=== PATIENT | male | born 1950 | race Caucasian/White ===

== ENCOUNTER 2017-09-18 03:48 | Inpatient (IN) | payer MEDICARE, OTHER ==
[~2017-09-18] VITALS: Ht 177.8 cm; Wt 138.8 kg
[~2017-09-18 03:48] MED LIST: ASPI-495 PO; HYDR2TAB7 PO; LEVO175T2 PO; NEBI5TAB8 PO; TAMS-12 PO
--- NOTE | 2017-09-18 03:50 | NUR ---
BIBRA FROM HOME C/O BURNING LIKE NONRADIATING CHEST PAIN X ALL DAY. PT AOX3 RR EVEN AND UNLABORED NO SOB, PT NOT DIAPHORETIC. PT GOWNED AND PLACED ON MONITOR. PT STATES HX STENT PLACEMENT. PER EMS GAVE ASA 162 AND 2 SPRAYS OF NITRO WITH RELIEF. PT WAITING FOR MD LEONG
--- NOTE | 2017-09-18 04:13 | NUR ---
DR. DAN AT BEDSIDE FOR EVAL. PT SON AT BEDSIDE
[2017-09-18] MEDS ORDERED: NITROGLYCERIN PACKET 1 GM PACKET ONE (04:22)
[2017-09-18] MEDS ORDERED: HYDROMORPHONE HCL 2 MG TABLET ONE (04:22)
[2017-09-18 04:29] LABS: BASOPHILS % (AUTO) 0.3 % (0.0-2.0); EOSINOPHILS # (AUTO) 0.1 /CMM (0.0-0.7); EOSINOPHILS % (AUTO) 1.2 % (0.0-6.0); HEMATOCRIT 42 % (39-51); HEMOGLOBIN 14.1 g/dL (13.5-17.5); LYMPHOCYTES # (AUTO) 3.4 /CMM (0.8-4.8); LYMPHOCYTES % (AUTO) 30.6 % (20.0-44.0); MEAN CORPUSCULAR HEMOGLOBIN 28 PG (26.0-33.0); MEAN CORPUSCULAR HGB CONC 34 g/dl (31.0-36.0); MEAN CORPUSCULAR VOLUME 84 fL (80-96); MONOCYTES # (AUTO) 0.6 /CMM (0.1-1.30); MONOCYTES % (AUTO) 5.1 % (2.0-12.0); NEUTROPHILS # (AUTO) 6.9 /CMM (1.8-8.9); NEUTROPHILS % (AUTO) 62.8 % (43.0-81.0); PLATELET COUNT (AUTO) 224 /CMM (150-450); RDW COEFFICIENT OF VARIATION 15.5 (11.5-15.0); RED BLOOD CELL COUNT(AUTO) 5.03 MIL/uL (4.5-6.0); WHITE BLOOD COUNT (AUTO) 10.9 K/uL (4.3-11.0)
[2017-09-18] MEDS ORDERED: HYDROMORPHONE HCL 2 MG TABLET PO PRN (04:30)
[2017-09-18] MEDS ORDERED: NITROGLYCERIN PACKET 1 GM PACKET TD ONE (04:30)
[2017-09-18] MEDS ORDERED: ASPIRIN 81 MG TAB.CHEW PO ONE (04:30)
[2017-09-18 04:39] LABS: CALCIUM, SERUM 9.2 mg/dL (8.5-10.1); CREATININE 1.5 mg/dL (0.6-1.3); POTASSIUM 3.7 mmol/L (3.5-5.1)
[2017-09-18 04:46] LABS: TROPONIN I 0.058 ng/mL (0.00-0.056)
--- NOTE | 2017-09-18 04:51 | NUR ---
RADIOLOGY AT BEDSIDE FOR CXR
[2017-09-18 04:52] LABS: ALBUMIN 3.5 g/dL (3.4-5.0); BILIRUBIN,DIRECT 0.1 mg/dL (0.0-0.2); BILIRUBIN,TOTAL 0.4 mg/dL (0.2-1.0); TOTAL PROTEIN, SERUM 8.1 g/dL (6.4-8.2)
[2017-09-18] MEDS ORDERED: ENOXAPARIN SODIUM 80 MG/0.8 ML DISP.SYRIN SQ ONE (05:17)
[2017-09-18] MEDS ORDERED: ENOXAPARIN SODIUM 60 MG/0.6 ML DISP.SYRIN SQ ONE (05:17)
[2017-09-18] MEDS ORDERED: ENOXAPARIN SODIUM 30 MG/0.3 ML DISP.SYRIN SQ ONE (05:30)
--- NOTE | 2017-09-18 05:37 | NUR ---
DR. DAN SPOKE TO DR. VELAZQUEZ REGARDING ADMISSION
--- NOTE | 2017-09-18 05:56 | NUR ---
PT ASSIGNED 116-2
[2017-09-18] MEDS ORDERED: MAG HYDROX/AL HYDROX/SIMETH 30 ML UDC PO PRN (06:00)
[2017-09-18] MEDS ORDERED: HYDROCODONE/APAP 5/325MG 1 EACH TABLET PO PRN (06:00)
[2017-09-18] MEDS ORDERED: MAGNESIUM HYDROXIDE 30 ML UDC PO PRN (06:00)
[2017-09-18] MEDS ORDERED: hydrALAZINE HCL 25 MG TABLET PO PRN ×2 (06:00→11:30)
[2017-09-18] MEDS ORDERED: Z GUARD REMEDY 2 OZ OINT TP PRN (06:00)
[2017-09-18] MEDS ORDERED: HYDROMORPHONE INJ 2 MG/ML DISP.SYRIN IV PRN (06:00)
--- NOTE | 2017-09-18 06:38 | NUR ---
REPORT GIVEN TO SUMI ADAMS FOR EDD / TELE BED 116
--- NOTE | 2017-09-18 06:40 | NUR ---
PER NALLELY CR, WILL CALL WHEN BED IS AVAILABLE.
--- NOTE | 2017-09-18 07:06 | NUR ---
REPORT GIVEN TO SUMI SHUKLA FOR EDD.
--- NOTE | 2017-09-18 07:13 | NUR ---
PT TRANSFERRED TO TELE BED 109 PER ACLS PROTOCOL.
[2017-09-18 07:25] VITALS: BP 143/75
--- NOTE | 2017-09-18 07:25 | NUR ---
NETWORK FIREWALL ENGINEER NOTE: PATIENT RECEIVED IN RM 116-2 FROM ER FOR FURTHER EVALUATION. PATIENT AWAKE, ALERT AND VERBALLY RESPONSIVE. RESPIRATION EVENA ND UNLABORED. ON O2 @ 2L/MIN VIA NC. NO SHORTNESS OF BREATH NOTED. DENIED ANY CHEST PAIN AT THIS TIME. ON TELE MONITOR, SINUS RHYTHM HR= 68. INTRODUCED SELF AND EXPLAINED THE PROCEDURES TO BE DONE. 2 SIDE RAILS UP. COMPLETE BODY ASSESSMENT DONE. SKIN INTACT. (L) AC 18G NOTED INTACT AND PATENT. AFEBRILE. SKIN WARM TO TOUCH. ABLE TO MOVE ALL 4 EXTREMITIES. BED ALARM AND LOCKED ON. ORIENTED WITH HOSPITAL ENVIRONMENT. CALL LIGHT WITHIN REACH. NEEDS ANTICIPATED. CONTINUE TO MONITOR.
[2017-09-18 08:00] VITALS: BP_SYST 135; BP_SYST 143; BP_DIAS 66; BP_DIAS 75
[2017-09-18] MEDS: LEVOTHYROXINE SODIUM 175 MCG TABLET PO SCH (08:02)
[2017-09-18] MEDS: ASPIRIN EC 81 MG TABLET.DR PO SCH (08:02)
[2017-09-18] MEDS: ONDANSETRON HCL/PF 4 MG/2 ML VIAL IVP PRN (08:02)
--- NOTE | 2017-09-18 08:48 | NUR ---
BEAN SPROUT LABORER NOTE: PATIENT WENT FOR V/Q SCAN, BUT TEST WAS NOT DONE BECAUSE PER PT HE WAS FEELING NERVOUS. AND PER PT REQUEST, HE WANTED TO HAVE THE TEST DONE TOMORROW MORNING.
[2017-09-18] MEDS ORDERED: LORAZEPAM INJ 2 MG/ML VIAL IV ONE (09:00)
[2017-09-18] MEDS: HYDROMORPHONE HCL 2 MG TABLET PO PRN ×3 (09:15→23:25)
[2017-09-18] MEDS: IV NS 0.9% 1,000 ML IV PRN ×2 (11:40→21:34)
[2017-09-18 12:00] VITALS: BP 113/64
[2017-09-18] MEDS ORDERED: HEPARIN SODIUM, PORCINE 5000 UNITS/1 ML VIAL IV ONE (12:00)
--- NOTE | 2017-09-18 13:15 | NUR ---
FLIGHT MANAGER NOTE: WHITE KID BUFFER FROM THE LAB WAS ABOUT TO DRAW BLOOD (PT/PTT) FOR THE PATIENT. UNABLE TO COLLECT BLOOD. PT REFUSED TO BE STICK TWICE. PER LAB, THEY WILL SEND ANOTHER WHITE KID BUFFER TO DRAW THE BLOOD.
--- NOTE | 2017-09-18 14:00 | NUR ---
RN NOTES CALL MAKE TO LAB REGARDING PT AND PTT RESULTS , LAB WORK IS IN PROCESS
[2017-09-18 14:09] LABS: INR 0.96 (0.87-1.13)
[2017-09-18] MEDS: HEPARIN INFUSION/D5W 500 ML IV PRN (14:29)
--- NOTE | 2017-09-18 14:58 | NUR ---
RN NOTES DR. MEDINA NOTIFIED REGRADING TROPONIN 0.170 , NO NEW ORDER GIVEN .CONTINUE TO MONITOR .
[2017-09-18 16:00] VITALS: BP 179/79
--- NOTE | 2017-09-18 16:00 | NUR ---
INSTRUMENTATION TECHNICIAN NOTE: PATIENT'S BP NOTED 177/70 HR 85. HYDRALAZINE 50 MG PO Q8HR PRN WAS ADMINISTERED ORDERED. WILL MONITOR PATIENT'S BP. PATIENT REMAINED IN BED, ASLEEP AND NOT ON ANY FORM OF DISTRESS.
[2017-09-18] MEDS ORDERED: hydrALAZINE HCL 50 MG TABLET PO ONE (17:00)
[2017-09-18] MEDS: NIFEdipine XL 60 MG TAB PO SCH (17:15)
--- NOTE | 2017-09-18 17:15 | NUR ---
PACK PRESS OPERATOR NOTE: PATIENT IN BED, ASLEEP AND DENIED PAIN. RECHECKED TG=325/69, HR=78. DR. CARTER WAS MADE AWARE OF IT. MD GAVE NEW ORDERS, NOTED AND CARRIED OUT. PATIENT WAS INFORMED.
--- NOTE | 2017-09-18 18:00 | NUR ---
MOLDER APPRENTICE NOTE: ATTEMPTED TO INSERT ANOTHER IV PERIPHERAL LINE FOR THE PATIENT, BUT UNSUCCESSFUL AT THIS TIME. CHARGE NURSE WAS MADE AWARE.
[2017-09-18] MEDS: ACETAMINOPHEN 325 MG TABLET PO PRN (18:10)
--- NOTE | 2017-09-18 19:25 | NUR ---
SPECIMEN PREPARATION ASSISTANT NOTE: PATIENT IN BED WITH AT THE BEDSIDE. NO SOB. DENIED PAIN. BED ALARM AND LOCKED AT ALL TIMES FOR SAFETY. REPORT GIVEN TO PM RN FOR CONTINUITY OF CARE. CALL LIGHT WITHIN REACH. IV FLUID AND HEPARIN DRIP STILL RUNNING ORDERED. NO S/S OF BLEEDING NOTED.
--- NOTE | 2017-09-18 19:41 | NUR ---
RN OPENING NOTE RECEIVED PATIENT IN THE BED, ASLEEP, EASILY AWAKENED, IS BY BEDSIDE, LAMP STACK DEVELOPER IS DOING ECHO CARD, NO S/S OF DISTRESS NOTED, PATIENT WILL BE NPO AFTER MIDNIGHT DUE TO PROCEDURE TOMORROW, L AC 18 GAUGE, ONGOING HEPARIN DRIP, ADMIT DX: CHEST PAIN, BED IN THE LOW POSITION , CALL LIGHT WITHIN REACH, ALL BELONGINGS WITHIN REACH, SIDE RAILS UP X 2, WILL CONTINUE TO MONITOR PATIENT
[2017-09-18 20:00] VITALS: BP 144/69
[2017-09-18] MEDS: hydrALAZINE HCL 50 MG TABLET PO SCH (20:59)
[2017-09-18] MEDS: CARVEDILOL 6.25 MG TABLET PO SCH (20:59)
[2017-09-18] MEDS: TAMSULOSIN 0.4 MG CAP.SR.24H PO SCH (21:29)
[2017-09-18] MEDS: ZOLPIDEM TARTRATE 5 MG TABLET PO PRN (22:08)
--- NOTE | 2017-09-18 22:19 | NUR ---
RN NOTE aPTT 115, WILL HOLD HEPARIN FOR 1 HOUR, AND THEN DECREASE HEPARIN DRIP BY 300 PER HEPARIN PROTOCOL, CHARGE NURSE IS AWARE, AWARE
[2017-09-19] VITALS: BP 130/85
[2017-09-19] MEDS ORDERED: PNEUMOCOCCAL 23-VAL P-SAC VAC 0.5 ML VIAL SQ ONE (01:00)
[2017-09-19] MEDS: ONDANSETRON HCL/PF 4 MG/2 ML VIAL IVP PRN ×4 (01:14→16:36)
[2017-09-19 04:00] VITALS: BP_SYST 130; BP_SYST 95; BP_DIAS 56; BP_DIAS 71
[2017-09-19 04:32] LABS: BASOPHILS % (AUTO) 0.3 % (0.0-2.0); EOSINOPHILS % (AUTO) 0.2 % (0.0-6.0); HEMATOCRIT 37 % (39-51); HEMOGLOBIN 12.5 g/dL (13.5-17.5); LYMPHOCYTES # (AUTO) 1.7 /CMM (0.8-4.8); LYMPHOCYTES % (AUTO) 15.5 % (20.0-44.0); MEAN CORPUSCULAR HEMOGLOBIN 29 PG (26.0-33.0); MEAN CORPUSCULAR HGB CONC 34 g/dl (31.0-36.0); MEAN CORPUSCULAR VOLUME 84 fL (80-96); MONOCYTES # (AUTO) 0.4 /CMM (0.1-1.30); MONOCYTES % (AUTO) 3.7 % (2.0-12.0); NEUTROPHILS # (AUTO) 8.7 /CMM (1.8-8.9); NEUTROPHILS % (AUTO) 80.3 % (43.0-81.0); PLATELET COUNT (AUTO) 182 /CMM (150-450); RDW COEFFICIENT OF VARIATION 15.4 (11.5-15.0); RED BLOOD CELL COUNT(AUTO) 4.37 MIL/uL (4.5-6.0); WHITE BLOOD COUNT (AUTO) 10.9 K/uL (4.3-11.0)
[2017-09-19 04:49] LABS: TROPONIN I 0.225 ng/mL (0.00-0.056)
[2017-09-19 04:51] LABS: ALBUMIN 2.8 g/dL (3.4-5.0); BILIRUBIN,TOTAL 0.5 mg/dL (0.2-1.0); CALCIUM, SERUM 8.1 mg/dL (8.5-10.1); CREATININE 1.1 mg/dL (0.6-1.3); MAGNESIUM 1.5 mg/dL (1.8-2.4); PHOSPHORUS 2.6 mg/dL (2.5-4.9); POTASSIUM 3.6 mmol/L (3.5-5.1); TOTAL PROTEIN, SERUM 6.5 g/dL (6.4-8.2)
[2017-09-19 04:55] LABS: THYROID STIMULATING HORMONE 0.925 uIU/mL (0.358-3.74)
[2017-09-19] MEDS ORDERED: HEPARIN INFUSION/D5W 500 ML IV ONE (05:24)
[2017-09-19] MEDS: HEPARIN INFUSION/D5W 500 ML IV PRN ×2 (05:34→20:27)
--- NOTE | 2017-09-19 07:00 | NUR ---
RN NOTE RECEIVED PATIENT ON BED, A/Ox4, RESPIRATION EVEN AND UNLABORED ON O2 AT 2L O2 N/C, NO SOB NOTED, ON TELE SR , HR IN 80,S , LEFT FOREARM IV G 22 CDI, WITH HEPARIN GTT AT 1785 UNITS /HR , NO DISTRESS NOTED, CALL LIGHT WITHIN REACH REACH, BED LOCKED AND IN LOWEST POSITION ,SIDE RAILS UP X 3, WILL CONTINUE TO MONITOR PT CLSOELY
--- NOTE | 2017-09-19 07:19 | NUR ---
RN CLOSING NOTE PATIENT IN THE BED, RESTING, EASILY AWAKENED, NO PAIN OR DISCOMFORT NOTED, NO S/S OF BLEEDING NOTED, ONGOING HEPARIN DRIP, PATIENT REQUESTED TO SEE DR CARTER TO DISCUSS PLAN OF CARE, ENDORSED TO AM NURSE, NO RESPIRATORY DISTRESS NOTED, BED IN THE LOW POSITION, CALL LIGHT WITHIN REACH, ALL BELONGINGS WITHIN REACH, BED ALARM ACTIVATED
[2017-09-19] MEDS: HYDROMORPHONE HCL 2 MG TABLET PO PRN ×2 (07:41→14:16)
[2017-09-19 08:00] VITALS: BP 123/45
--- NOTE | 2017-09-19 08:45 | NUR ---
RN NOTES HEART CATH CANCELED THIS AM , DR MEDINA NOTIFIED .
[2017-09-19] MEDS: ASPIRIN EC 81 MG TABLET.DR PO SCH (09:15)
[2017-09-19] MEDS: NIFEdipine XL 60 MG TAB PO SCH (09:16)
[2017-09-19] MEDS: LEVOTHYROXINE SODIUM 175 MCG TABLET PO SCH (09:16)
[2017-09-19] MEDS: CARVEDILOL 6.25 MG TABLET PO SCH (09:16)
[2017-09-19] MEDS: hydrALAZINE HCL 50 MG TABLET PO SCH ×3 (09:17→16:24)
[2017-09-19] MEDS: IV NS 0.9% 1,000 ML IV PRN ×2 (09:29→20:17)
--- NOTE | 2017-09-19 09:40 | NUR ---
RN NOTES PT REFUSED TO HAVE V/Q SCAN DONE THIS AM , DR CARTER NOTIFIED.
[2017-09-19] MEDS: Magnesium 1GM/D5W 100ML PREMIX 100 ML IV SCH ×2 (10:22→11:30)
[2017-09-19] MEDS: ONDANSETRON HCL 4 MG/5 ML SOLUTION PO ONE ×2 (10:25→10:52)
[2017-09-19] MEDS ORDERED: CARVEDILOL 6.25 MG TABLET PO ONE (11:00)
[2017-09-19 12:00] VITALS: BP 131/53
--- NOTE | 2017-09-19 12:00 | NUR ---
RN NOTES HEPARIN GTT AT 1785 UNITS/HR RUNNING VIA R UPPER ARM MIDLINE , NS AT 125CC/HR RUNNING VIA L WRIST IV SITE , NO DISTRESS NOTE. CONTINUE TO MONITOR .
[2017-09-19 16:00] VITALS: BP 121/46
--- NOTE | 2017-09-19 16:30 | NUR ---
RN NOTES PT C/O CONSTIPATION , MOM GIVEN , CONTINUE TO MONITOR .
--- NOTE | 2017-09-19 18:18 | NUR ---
RN NOTES PT STABLE NO BM YET , HEPARIN GTT AT 1785 UNITS/ HR RUNNING VIA L UPPER ARM MIDLINE , FAMILY AT THE BEDSIDE, WILL ENDORSE TO SENIOR GAME DESIGNER NURSE FOR EDD .
[2017-09-19 20:00] VITALS: BP 132/63
[2017-09-19] MEDS ORDERED: CARVEDILOL 6.25 MG TABLET PO SCH (21:00)
[2017-09-19] MEDS: TAMSULOSIN 0.4 MG CAP.SR.24H PO SCH (21:19)
[2017-09-19] MEDS: ZOLPIDEM TARTRATE 5 MG TABLET PO PRN (21:20)
[2017-09-19] MEDS ORDERED: NA PHOS,M-B/NA PHOS,DI-BA 1 EA ENEMA RC ONE ×2 (22:44→23:00)
--- NOTE | 2017-09-19 23:00 | NUR ---
WOODENWARE ASSEMBLER NOTES, PATIENT REQUESTING [employer] SECONDARY TO INABILITY TO HAVE A BOWEL MOVEMENT FOR 3 NARANJO AND C/O DISCOMFORTS, PAGED MD MANAGER TELEMARKETING AND REPLIED WITH ORDER FOR FLEET [employer], WILL ADMINISTER ORDERED.
[2017-09-20] VITALS: BP 104/39
[2017-09-20] MEDS: HYDROMORPHONE HCL 2 MG TABLET PO PRN (01:33)
[2017-09-20] MEDS: IV NS 0.9% 1,000 ML IV PRN (04:39)
[2017-09-20] MEDS: ACETAMINOPHEN 325 MG TABLET PO PRN (04:55)
--- NOTE | 2017-09-20 05:47 | NUR ---
DOWEL PIN MAN NOTES, CALLED [facility] TO GIVE REPORT AT [phone] ABOUT PATIENT GOING FOR CARDIAC CATHETERIZATION SCHEDULE FOR TODAY, AND UNABLE TO REACH, LEFT MESSAGE, WILL ATTEMPT AGAIN TO GIVE REPORT.
--- NOTE | 2017-09-20 06:30 | NUR ---
MATERIAL DAMAGE APPRAISER NOTES, CALLED [facility] AND GAVE REPORT TO SUMI GUILLAUME ABOUT PATIENT GOING FOR CARDIAC CATHETERIZATION, AND INFORMED THAT PATIENT WILL BE PRESS OPERATOR HELPER AT 0730. PATIENT IN BED ASLEEP BUT EASILY AROUSABLE , NO C/O PAIN OR DISCOMFORT AT THIS TIME, NPO SINCE MIDNIGHT, ON O2 2LPM VIA NC SATURATING >93%, WILL ENDORSE CONTINUITY OF CARE TO NEXT SHIFT NURSE.
--- NOTE | 2017-09-20 07:05 | NUR ---
RN INITIAL NOTE PATIENT RECEIVED IN BED RESTING. EASILY AROUSED. ALERT AND ORIENTED. ABLE TO MAKE NEEDS KNOWN. NO S/S OF PAIN OR DISCOMFORT. PATIENT DENIES PAIN AT THIS TIME. HOWEVER HE STATES HE IS VERY ANXIOUS AND IS REQUESTING ME TO STOP ALL IV INFUSION INCLUDING HEPARIN DRIP. SINUS RHYTHM ON TELE MONITOR.. SATING WELL ON 5L NASAL CANULA. RESPIRATIONS ARE EVEN BUT PATIENT IS BREATHING SHALLOWLY AND IS TACHYPNEIC. SKIN IS WARM AND DRY TO TOUCH. IV SITE FLUSHED, PATENT. SAFETY PRECAUTIONS IMPLEMENTED. BED IN LOCKED, LOW POSITION. TWO SIDE RAILS UP. CALL LIGHT WITHIN EASY REACH. WILL CONTINUE TO MONITOR.
[2017-09-20] MEDS ORDERED: LORAZEPAM INJ 2 MG/ML VIAL IV PRN (07:30)
[2017-09-20] MEDS: LEVOTHYROXINE SODIUM 175 MCG TABLET PO SCH (07:30)
[2017-09-20 07:35] LABS: BASOPHILS % (AUTO) 0.2 % (0.0-2.0); EOSINOPHILS % (AUTO) 0.3 % (0.0-6.0); HEMATOCRIT 37 % (39-51); HEMOGLOBIN 12.4 g/dL (13.5-17.5); LYMPHOCYTES # (AUTO) 1.8 /CMM (0.8-4.8); LYMPHOCYTES % (AUTO) 16.3 % (20.0-44.0); MEAN CORPUSCULAR HEMOGLOBIN 29 PG (26.0-33.0); MEAN CORPUSCULAR HGB CONC 34 g/dl (31.0-36.0); MEAN CORPUSCULAR VOLUME 84 fL (80-96); MONOCYTES # (AUTO) 0.5 /CMM (0.1-1.30); MONOCYTES % (AUTO) 4.1 % (2.0-12.0); NEUTROPHILS # (AUTO) 8.9 /CMM (1.8-8.9); NEUTROPHILS % (AUTO) 79.1 % (43.0-81.0); PLATELET COUNT (AUTO) 204 /CMM (150-450); RDW COEFFICIENT OF VARIATION 15.4 (11.5-15.0); RED BLOOD CELL COUNT(AUTO) 4.34 MIL/uL (4.5-6.0); WHITE BLOOD COUNT (AUTO) 11.3 K/uL (4.3-11.0)
--- NOTE | 2017-09-20 07:45 | NUR ---
RN NOTE PATIENT VERY ANXIOUS. PER DR RAUL CHAPPELL TO GIVE 1MG ATIVAN STAT.
[2017-09-20 07:48] LABS: ALBUMIN 2.8 g/dL (3.4-5.0); BILIRUBIN,TOTAL 0.6 mg/dL (0.2-1.0); CALCIUM, SERUM 8.1 mg/dL (8.5-10.1); CREATININE 1.2 mg/dL (0.6-1.3); PHOSPHORUS 2.8 mg/dL (2.5-4.9); POTASSIUM 3.5 mmol/L (3.5-5.1); TOTAL PROTEIN, SERUM 6.6 g/dL (6.4-8.2)
[2017-09-20 07:52] LABS: TROPONIN I 1.143 ng/mL (0.00-0.056)
[2017-09-20 08:00] VITALS: BP 106/54
--- NOTE | 2017-09-20 08:19 | NUR ---
RN CLOSING NOTE AMBULANCE HERE TO TRANSFER PATIENT TO [facility] FOR CARDIAC CATH THIS AM. TELE BOX REMOVED. REPORT ALREADY CALLED IN BY PM RN. BELONGINGS SENT WITH PATIENT.
== END 2017-09-20 16:39 | disposition short-term general hospital (02) | DRG 281 ==
LOC: ER 03:50 → TELE1 05:58
PROVIDERS: ADMIT Internal Medicine; ATTEND Internal Medicine
PROC: 05H633Z Insertion of Infusion Device into Left Subclavian Vein, Percutaneous Approach (ICD-10-PCS; principal; 2017-09-19)
DX: I21.4 Non-ST elevation (NSTEMI) myocardial infarction (principal); Z68.41 Body mass index [BMI] 40.0-44.9, adult; J44.9 Chronic obstructive pulmonary disease, unspecified; E44.1 Mild protein-calorie malnutrition; E66.01 Morbid (severe) obesity due to excess calories; E83.42 Hypomagnesemia; E78.5 Hyperlipidemia, unspecified; I25.110 Atherosclerotic heart disease of native coronary artery with unstable angina pectoris; I25.2 Old myocardial infarction; Z98.61 Coronary angioplasty status; G47.33 Obstructive sleep apnea (adult) (pediatric); Z87.891 Personal history of nicotine dependence; Z90.5 Acquired absence of kidney; N18.9 Chronic kidney disease, unspecified; I12.9 Hypertensive chronic kidney disease with stage 1 through stage 4 chronic kidney disease, or unspecified chronic kidney disease; Z85.528 Personal history of other malignant neoplasm of kidney; H81.10 Benign paroxysmal vertigo, unspecified ear; E89.0 Postprocedural hypothyroidism; Z92.21 Personal history of antineoplastic chemotherapy; N40.0 Benign prostatic hyperplasia without lower urinary tract symptoms; Z86.73 Personal history of transient ischemic attack (TIA), and cerebral infarction without residual deficits; J45.909 Unspecified asthma, uncomplicated; Z79.82 Long term (current) use of aspirin
CPT/HCPCS: 36415; 36569; 71045-TC; 80048-TC; 80053-TC; 80061-TC; 80076-TC; 82746; 83540-TC; 83735-TC; 83880; 84100-TC; 84443-TC; 84484-TC; 85025-TC; 85378-TC; 85730-TC; 87081-TC; 90732; 93307-TC; A4606; J1644; J1650; J2060; J2405; J3475; J7030; Q0162; Z7610

== ENCOUNTER 2017-10-24 15:16 | Inpatient (IN) | payer MEDICARE, OTHER ==
[~2017-10-24] VITALS: Ht 177.8 cm; Wt 130.2 kg
--- NOTE | 2017-10-24 15:22 | NUR ---
SEVERE RUQ ABD PAIN SINCE 1100AM TODAY, NAUSEA/VOMITING, NAD NOTED, VSS, RESP EVEN AND UNLABORED, PT WAS PUT ON MONITOR, WAITING FOR MD LEONG.
[2017-10-24 15:34] LABS: BASOPHILS % (AUTO) 0.2 % (0.0-2.0); EOSINOPHILS # (AUTO) 0.2 /CMM (0.0-0.7); EOSINOPHILS % (AUTO) 2.1 % (0.0-6.0); HEMATOCRIT 43 % (39-51); HEMOGLOBIN 14.7 g/dL (13.5-17.5); LYMPHOCYTES # (AUTO) 1.9 /CMM (0.8-4.8); LYMPHOCYTES % (AUTO) 23.4 % (20.0-44.0); MEAN CORPUSCULAR HEMOGLOBIN 28 PG (26.0-33.0); MEAN CORPUSCULAR HGB CONC 34 g/dl (31.0-36.0); MEAN CORPUSCULAR VOLUME 84 fL (80-96); MONOCYTES # (AUTO) 0.4 /CMM (0.1-1.30); NEUTROPHILS # (AUTO) 5.8 /CMM (1.8-8.9); NEUTROPHILS % (AUTO) 69.3 % (43.0-81.0); PLATELET COUNT (AUTO) 202 /CMM (150-450); RDW COEFFICIENT OF VARIATION 14.9 (11.5-15.0); RED BLOOD CELL COUNT(AUTO) 5.18 MIL/uL (4.5-6.0); WHITE BLOOD COUNT (AUTO) 8.3 K/uL (4.3-11.0)
[2017-10-24 15:43] LABS: CALCIUM, SERUM 9.2 mg/dL (8.5-10.1); CARBON DIOXIDE 31 mmol/L (21-32); CHLORIDE 100 mmol/L (98-107); CREATININE 1.5 mg/dL (0.6-1.3); GLUCOSE 133 mg/dL (74-106); POTASSIUM 3.8 mmol/L (3.5-5.1); SODIUM SERUM 139 mmol/L (136-145); UREA NITROGEN, BLOOD 15 mg/dL (7-18)
[2017-10-24 15:47] LABS: INR 0.97 (0.85-1.15)
[2017-10-24 15:49] LABS: ALANINE AMINOTRANSFERASE 362 U/L (12-78); ALBUMIN 3.6 g/dL (3.4-5.0); ALKALINE PHOSPHATASE 204 U/L (46-116); ASPARTATE AMINOTRANSFERASE 163 U/L (15-37); BILIRUBIN,DIRECT 1.7 mg/dL (0.0-0.2); BILIRUBIN,TOTAL 2.4 mg/dL (0.2-1.0); TOTAL PROTEIN, SERUM 8.4 g/dL (6.4-8.2)
[2017-10-24 15:51] LABS: TROPONIN I < 0.017 ng/mL (0.00-0.056)
[2017-10-24] MEDS ORDERED: MORPHINE SULFATE INJ 4 MG/ML DISP.SYRIN ONE ×2 (17:04→17:05)
--- NOTE | 2017-10-24 17:15 | NUR ---
U/S TECH AT BEDSIDE FOR GALLBLADDER ULTRSOUND.
[2017-10-24] MEDS ORDERED: HYDROMORPHONE 1 MG/1 ML DISP.SYRIN IV ONE (17:30)
[2017-10-24] MEDS ORDERED: IV NS 0.9% 1,000 ML BAG IV ONE (17:30)
[2017-10-24] MEDS ORDERED: ONDANSETRON HCL/PF 4 MG/2 ML VIAL IV ONE (17:30)
[2017-10-24] MEDS ORDERED: MORPHINE SULFATE INJ 4 MG/ML DISP.SYRIN IV ONE (17:30)
[2017-10-24] MEDS ORDERED: LORA0.5T PO (18:30)
[2017-10-24] MEDS ORDERED: CARV6.252 PO (18:30)
[2017-10-24] MEDS ORDERED: DRON2.5C PO (18:30)
[2017-10-24] MEDS ORDERED: PANT40TA4 PO (18:30)
[2017-10-24] MEDS ORDERED: AMLO5TAB2 PO (18:30)
[2017-10-24] MEDS ORDERED: LINA290C PO (18:30)
[2017-10-24] MEDS ORDERED: ATOR40TA PO (18:30)
[2017-10-24] MEDS ORDERED: OXYC10TA49 PO (18:30)
[2017-10-24] MEDS ORDERED: DEXL60CA3 PO (18:30)
[2017-10-24] MEDS ORDERED: TRAM50TA2 PO (18:30)
[2017-10-24] MEDS ORDERED: CLOP75TA15 PO (18:30)
[2017-10-24] MEDS ORDERED: Z GUARD REMEDY 2 OZ OINT TP PRN (19:00)
[2017-10-24] MEDS ORDERED: ONDANSETRON HCL/PF 4 MG/2 ML VIAL IVP PRN (19:00)
[2017-10-24] MEDS ORDERED: LORAZEPAM 0.5 MG TABLET PO PRN (19:00)
[2017-10-24] MEDS ORDERED: MAG HYDROX/AL HYDROX/SIMETH 30 ML UDC PO PRN (19:00)
[2017-10-24] MEDS ORDERED: HYDROCODONE/APAP 5/325MG 1 EACH TABLET PO PRN (19:00)
[2017-10-24] MEDS ORDERED: ACETAMINOPHEN 325 MG TABLET PO PRN (19:00)
[2017-10-24] MEDS ORDERED: MAGNESIUM HYDROXIDE 30 ML UDC PO PRN (19:00)
--- NOTE | 2017-10-24 19:04 | NUR ---
[facility] DR. [facility].
--- NOTE | 2017-10-24 19:55 | NUR ---
REPORT GIVEN TO ADAM/RN ON BEHALF OF PRIMARY NURSE NATHAN.
[2017-10-24] MEDS ORDERED: LORAZEPAM 1 MG TABLET ONE (20:17)
--- NOTE | 2017-10-24 20:26 | NUR ---
PER DR. RIOS "SEND THE PT TO MS FLOOR AND I WILL TALK TO DAVEY/MARINE CARGO SPECIALIST. PT REFUSED MRI AFTER ATIVAN WAS OFFERED FOR HIS CLASTOPHOBIA AND STATED "I WANNA BE FULLY SEDATED". NOTIFIED.
[2017-10-24 20:30] VITALS: BP 144/82
[2017-10-24] MEDS: TAMSULOSIN 0.4 MG CAP.SR.24H PO SCH (21:53)
[2017-10-24] MEDS: ATORVASTATIN 40 MG TABLET PO SCH (21:53)
[2017-10-24] MEDS: ZOLPIDEM TARTRATE 5 MG TABLET PO PRN (22:44)
--- NOTE | 2017-10-24 22:44 | NUR ---
MS RN NOTES C/O INSOMNIA,AMBIEN 5MG PO GIVEN PER PATIENT REQUEST.
--- NOTE | 2017-10-24 22:44 | NUR ---
MS JONAS NOTES C/O CLAUDE HEDRICK 5MG PO GIVEN ORDERED PRN Q HS Addendum: 10/25/17 at 0434 by ADAM HENSLEY RN DUPLICATE NOTE
--- NOTE | 2017-10-24 22:52 | NUR ---
MS JONASDIRECTOR FACILITIES MAINTENANCE NOTES ADMITTED THIS 67YO MALE FROM ER PER WHEELCHAIR,A/0 X3-4,CHIEF COMPLAINTS OF SEVERE ABDOMINAL PAIN SINCE 11AM WITH NAUSEA AND VOMITING.PAIN SCALE 2/10 UPON ARRIVAL ON THE UNIT.PATIENT VERBALIZED AMBULATE WITH WALKER,CANE,WHEELCHAIR AT HOME.NO SKIN ISSUES.ABDOMEN DISTENDED BUT SOFT.SALINE LOCK RIGHT AC INTACT AND PATENT.CALL LIGHT IN REACH,NEEDS ANTICIPATED. Addendum: 10/25/17 at 6735 by ADAM HENSLEY RN ADMISSION NOTES TIMED AT 0955
[2017-10-25] MEDS: MORPHINE SULFATE INJ 4 MG/ML DISP.SYRIN IV PRN ×5 (04:18→20:41)
--- NOTE | 2017-10-25 04:18 | NUR ---
MS RN NOTES AWAKE,SITTING IN EDGE OF BED.C/O ABDOMINAL PAIN 9/10 ON PAIN SCALE.MORPHINE 2MG IV GIVEN ORDERED FOR SEVERE PAIN
[2017-10-25 06:22] LABS: BASOPHILS % (AUTO) 0.4 % (0.0-2.0); EOSINOPHILS # (AUTO) 0.2 /CMM (0.0-0.7); EOSINOPHILS % (AUTO) 2.7 % (0.0-6.0); HEMATOCRIT 38 % (39-51); HEMOGLOBIN 12.7 g/dL (13.5-17.5); LYMPHOCYTES # (AUTO) 1.9 /CMM (0.8-4.8); MEAN CORPUSCULAR HEMOGLOBIN 29 PG (26.0-33.0); MEAN CORPUSCULAR HGB CONC 34 g/dl (31.0-36.0); MEAN CORPUSCULAR VOLUME 85 fL (80-96); MONOCYTES # (AUTO) 0.5 /CMM (0.1-1.30); MONOCYTES % (AUTO) 6.6 % (2.0-12.0); NEUTROPHILS # (AUTO) 5.1 /CMM (1.8-8.9); NEUTROPHILS % (AUTO) 65.3 % (43.0-81.0); PLATELET COUNT (AUTO) 172 /CMM (150-450); RED BLOOD CELL COUNT(AUTO) 4.41 MIL/uL (4.5-6.0); WHITE BLOOD COUNT (AUTO) 7.8 K/uL (4.3-11.0)
--- NOTE | 2017-10-25 06:32 | NUR ---
MS RN NOTES PAIN MANAGEMENT EFFECTIVE,NO N/V NOTED,ABLE TO AMBULATE WITH WALKER.DUE MEDS ADMINISTERED.CALL LIGHT IN REACH,NEEDS ATTENDED.
[2017-10-25 06:37] LABS: BILIRUBIN,DIRECT 0.5 mg/dL (0.0-0.2); BILIRUBIN,TOTAL 1.4 mg/dL (0.2-1.0); CALCIUM, SERUM 8.6 mg/dL (8.5-10.1); CREATININE 1.3 mg/dL (0.6-1.3); POTASSIUM 3.7 mmol/L (3.5-5.1); TOTAL PROTEIN, SERUM 7.1 g/dL (6.4-8.2)
[2017-10-25 06:41] LABS: THYROID STIMULATING HORMONE 2.4 uIU/mL (0.358-3.74)
[2017-10-25] MEDS: LEVOTHYROXINE SODIUM 175 MCG TABLET PO SCH ×2 (07:30→13:36)
--- NOTE | 2017-10-25 07:30 | NUR ---
RN MS NOTES PT IN BED, ASLEEP, EASILY AROUSABLE, ALERT AND ORIENTED, NO COMPLAINT OF PAIN AT THIS TIME, BREATHING PATTERN NORMAL AND NOT LABORED, CALL LIGHT WITHIN REACH, KEPT WARM AND COMFORTABLE IN BED, NEEDS ATTENDED.
[2017-10-25 08:00] VITALS: BP 139/70
[2017-10-25] MEDS: DRONABINOL (2.5 MG) 2.5 MG CAPSULE PO SCH (09:00)
[2017-10-25] MEDS: AMLODIPINE BESYLATE 5 MG TABLET PO SCH (09:00)
[2017-10-25] MEDS: CLOPIDOGREL BISULFATE 75 MG TABLET PO SCH ×2 (09:00→13:36)
[2017-10-25] MEDS: CARVEDILOL 6.25 MG TABLET PO SCH ×2 (09:00→17:00)
--- NOTE | 2017-10-25 09:05 | NUR ---
RN MS NOTES SPOKE WITH PT, PT STILL REFUSES TO DO MRCP, EXPLAINED RISKS AND BENEFITS, OFFERED ATIVAN BEFORE THE TEST, STILL REFUSED, STATET THAT HE IS CLAUSTROPHOBIC AND HE TRIED IT MANY MANY TIMES AND HE CAN'T DO IT.
[2017-10-25] MEDS: PANTOPRAZOLE 40 MG VIAL IV SCH (09:18)
--- NOTE | 2017-10-25 11:24 | NUR ---
RN MS NOTES PER DAVEY ALEXANDRA, PT WILL CONTINUE TO BE ON STRICT NPO UNTIL SEEN BY NATALIE.
[2017-10-25] MEDS: TRAMADOL HCL 50 MG TABLET PO PRN (11:37)
--- NOTE | 2017-10-25 13:30 | NUR ---
RN MS NOTES PT IN BED, ASLEEP, EASY TO AROUSE, ALERT AND ORIENTED, SEEN BY DAVEY STEAM PIPE FITTER, PLAN OF CARE DISCUSSED WITH PT, DAVEY INFORMED OF PT'S REFUSALS FOR MRCP, PER DAVEY, OK TO GIVE SYNTHROID AND PLAVIX WITH A LITTLE SIP OF WATER, CALL LIGHT WITHIN REACH, NEEDS ATTENDED.
[2017-10-25 14:45] LABS: IRON, SERUM 68 ug/dl (50-175); TOTAL IRON BINDING CAPACITY 219 ug/dl (250-450)
[2017-10-25] MEDS: ASPIRIN 81 MG TAB.CHEW PO SCH (15:00)
[2017-10-25 16:00] VITALS: BP 135/68
--- NOTE | 2017-10-25 18:17 | NUR ---
RN MS NOTES PT AWAKE, SITTING IN BED, PAIN MEDICATION GIVEN FOR PAIN MANAGEMENT ORDERED, NOT IN DISTRESS, NO COMPLAINT OF NAUSEA, VOMITING OR DIARRHEA, SEEN BY NITIN ALEXANDRA AND DAVEY BOAT CREW DECK HAND, PLAN OF CARE DISCUSSED WITH PT, VERBALIZED UNDESTANDING, PT ALSO SEEN BY DR. MEDINA, CLEARANCE GIVEN FOR PLANNED ERCP OR EGD, VISITED BY , CALL LIGHT WITHIN REACH, ALL NEEDS ATTENDED.
--- NOTE | 2017-10-25 19:45 | NUR ---
MS RN NOTES ON BED A/O X4,SITTING,NOT IN ANY FORM OF DISTRESS,O2 IN USED TO KEEP O2 SAT ABOVE 90%,AMBULATE WITH WALKER,REMAINS NPO ORDERED,POSSIBLE ERCP TOMORROW.FALL PRECAUTION OBSERVED.CALL LIGHT IN REACH,NEEDS ANTICIPATED.
[2017-10-25 20:00] VITALS: BP 133/69
--- NOTE | 2017-10-25 20:41 | NUR ---
MS RN NOTES C/O ABDOMINAL PAIN 8/10 N PAIN SCALE,MORPHINE 2MG IV GIVEN ORDERED
[2017-10-25] MEDS: ATORVASTATIN 40 MG TABLET PO SCH (21:45)
[2017-10-25] MEDS: TAMSULOSIN 0.4 MG CAP.SR.24H PO SCH (21:45)
[2017-10-25] MEDS: ZOLPIDEM TARTRATE 5 MG TABLET PO PRN (22:48)
--- NOTE | 2017-10-25 22:48 | NUR ---
MS RN NOTES C/O INSOMNIA,AMBIEN 5MG PO GIVEN
--- NOTE | 2017-10-26 01:00 | NUR ---
MS RN NOTES KEPT NPO,SLEEPING
[2017-10-26] MEDS: MORPHINE SULFATE INJ 4 MG/ML DISP.SYRIN IV PRN ×4 (04:10→20:31)
--- NOTE | 2017-10-26 04:10 | NUR ---
MS RN NOTES AWAKE,C/O ABDOMINAL PAIN 8/10 ON PAIN SCALE.MORPHINE 2MG IV GIVEN ORDERED.
[2017-10-26 06:45] LABS: BASOPHILS % (AUTO) 0.3 % (0.0-2.0); EOSINOPHILS # (AUTO) 0.2 /CMM (0.0-0.7); EOSINOPHILS % (AUTO) 2.5 % (0.0-6.0); HEMATOCRIT 38 % (39-51); HEMOGLOBIN 12.8 g/dL (13.5-17.5); LYMPHOCYTES % (AUTO) 25.7 % (20.0-44.0); MEAN CORPUSCULAR HEMOGLOBIN 29 PG (26.0-33.0); MEAN CORPUSCULAR HGB CONC 34 g/dl (31.0-36.0); MEAN CORPUSCULAR VOLUME 85 fL (80-96); MONOCYTES # (AUTO) 0.4 /CMM (0.1-1.30); MONOCYTES % (AUTO) 5.7 % (2.0-12.0); NEUTROPHILS % (AUTO) 65.8 % (43.0-81.0); PLATELET COUNT (AUTO) 181 /CMM (150-450); RDW COEFFICIENT OF VARIATION 15.9 (11.5-15.0); RED BLOOD CELL COUNT(AUTO) 4.45 MIL/uL (4.5-6.0); WHITE BLOOD COUNT (AUTO) 7.6 K/uL (4.3-11.0)
--- NOTE | 2017-10-26 07:00 | NUR ---
MS RN NOTES KEPT NPO ORDERED,PAIN MANAGEMENT EFFECTIVE.POSSIBLE ERCP IF LFTS/REMAINS ELEVATED.IN NO ACUTE DISTRESS.NEEDS ATTENDED.WILL ENDORSE TO DAY NURSE FOR EDD.
[2017-10-26 07:05] LABS: ALBUMIN 3.1 g/dL (3.4-5.0); BILIRUBIN,DIRECT 0.3 mg/dL (0.0-0.2); CALCIUM, SERUM 8.8 mg/dL (8.5-10.1); CREATININE 1.3 mg/dL (0.6-1.3); POTASSIUM 3.8 mmol/L (3.5-5.1); TOTAL PROTEIN, SERUM 7.3 g/dL (6.4-8.2)
--- NOTE | 2017-10-26 07:31 | NUR ---
RN MS NOTES PT IN BED, ASLEEP, EASY TO AROUSE, NO COMPLAINT OF PAIN AT THIS TIME, NOT IN DISTRESS, CALL LIGHT WITHIN REACH, NEEDS ATTENDED, KEPT WARM AND COMFORTABLE.
[2017-10-26 08:00] VITALS: BP 123/72
[2017-10-26] MEDS: PANTOPRAZOLE 40 MG VIAL IV SCH (08:20)
[2017-10-26] MEDS: CLOPIDOGREL BISULFATE 75 MG TABLET PO SCH (08:20)
[2017-10-26] MEDS: LEVOTHYROXINE SODIUM 175 MCG TABLET PO SCH (08:20)
[2017-10-26] MEDS: ASPIRIN 81 MG TAB.CHEW PO SCH (09:00)
[2017-10-26] MEDS: CARVEDILOL 6.25 MG TABLET PO SCH ×2 (09:00→18:04)
[2017-10-26] MEDS: DRONABINOL (2.5 MG) 2.5 MG CAPSULE PO SCH (09:00)
[2017-10-26] MEDS: AMLODIPINE BESYLATE 5 MG TABLET PO SCH (09:00)
[2017-10-26] MEDS ORDERED: BISACODYL SUPP (10 MG) 10 MG/SUPP.RECT SUPP.RECT RC ONE (11:30)
[2017-10-26] MEDS: DOCUSATE SODIUM 100 MG CAPSULE PO SCH ×2 (12:47→18:04)
[2017-10-26] MEDS: TRAMADOL HCL 50 MG TABLET PO PRN (12:48)
--- NOTE | 2017-10-26 13:30 | NUR ---
RN MS NOTES PT IN BED, RESTING, DENIES PAIN, NOT IN DISTRESS, CALL LIGHT WITHIN REACH, SEEN BY DAVEY ALEXANDRA TODAY, PLAN OF CARE DISCUSSED WITH PT, VERBALIZED UNDERSTANDING, NEEDS ATTENDED.
[2017-10-26 16:00] VITALS: BP 146/77
--- NOTE | 2017-10-26 18:42 | NUR ---
RN MS NOTES RELAYED LATEST ABD ULTRASOUND AND LATEST LFT'S TO NITIN GI TOWEL ROLLING MACHINE OPERATOR, ORDERS GIVEN TO RESUME DIET, START WITH CLEAR LIQUIDS, NOTED AND CARRIED OUT. PT DENIES PAIN AT THIS TIME, BREATHING PATTERN NORMAL, CALL LIGHT WITHIN REACH, PM CARE RENDERED, NEEDS ATTENDED.
--- NOTE | 2017-10-26 19:10 | NUR ---
MS RN NOTES RECEIVED PT IN BED, A/O X4, SITTING , WATCHING IN HIS LAPTOP AT THIS TIME. NOT IN ANY FORM OF DISTRESS. PRECAUTION OBSERVED.CALL LIGHT IN REACH,NEEDS ANTICIPATED. WILL CONT TO MONITOR
[2017-10-26 20:00] VITALS: BP 134/64
[2017-10-26] MEDS: MUPIROCIN OINT 2% 22 GM TUBE SCH (20:20)
--- NOTE | 2017-10-26 22:30 | NUR ---
PT IS A/O X 4, VERBALIZED THAT HE HAS MEDICATION INSIDE THE BEDSIDE DRAWER , LINZESS 290 MCG IN A WHITE BOTTLE, INFORMED AND EXPLAIN TO THE PT REGARDING HOSPITAL POLICY THAT HE CANNOT KEEP A MEDICATION AT BEDSIDE, HE NEEDS TO LET US KNOW, EXPLAIN TO THE PT THAT WE HAVE TO KEEP IT AND GIVE IT TO PHARMACY IN AM , FOR SAFEKEEPING, PT REFUSED TO GIVE THE BOTTLE OF MEDICATION, RISK AND BENEFITS EXPLAINED , PT STILL REFUSED X 3. CHARGE NURSE INFORMED.
[2017-10-26] MEDS: TAMSULOSIN 0.4 MG CAP.SR.24H PO SCH (22:32)
[2017-10-26] MEDS: ATORVASTATIN 40 MG TABLET PO SCH (22:32)
[2017-10-26] MEDS: ZOLPIDEM TARTRATE 5 MG TABLET PO PRN (22:36)
[2017-10-27] MEDS: TRAMADOL HCL 50 MG TABLET PO PRN ×2 (01:33→12:00)
[2017-10-27] MEDS: MORPHINE SULFATE INJ 4 MG/ML DISP.SYRIN IV PRN (04:08)
--- NOTE | 2017-10-27 06:55 | NUR ---
RN MS NOTES PT IN BED, RESTING, DENIES PAIN, NOT IN DISTRESS, CALL LIGHT WITHIN REACH, ALL DUE MEDS GIVEN, NEEDS ATTENDED. WILL ENDORSE TO NEXT SHIFT FOR EDD.
[2017-10-27 07:05] LABS: BASOPHILS % (AUTO) 0.3 % (0.0-2.0); EOSINOPHILS # (AUTO) 0.2 /CMM (0.0-0.7); EOSINOPHILS % (AUTO) 3.4 % (0.0-6.0); HEMATOCRIT 36 % (39-51); HEMOGLOBIN 12.3 g/dL (13.5-17.5); LYMPHOCYTES # (AUTO) 1.8 /CMM (0.8-4.8); LYMPHOCYTES % (AUTO) 25.9 % (20.0-44.0); MEAN CORPUSCULAR HEMOGLOBIN 29 PG (26.0-33.0); MEAN CORPUSCULAR HGB CONC 34 g/dl (31.0-36.0); MEAN CORPUSCULAR VOLUME 84 fL (80-96); MONOCYTES # (AUTO) 0.5 /CMM (0.1-1.30); MONOCYTES % (AUTO) 7.6 % (2.0-12.0); NEUTROPHILS # (AUTO) 4.4 /CMM (1.8-8.9); NEUTROPHILS % (AUTO) 62.8 % (43.0-81.0); PLATELET COUNT (AUTO) 174 /CMM (150-450); RDW COEFFICIENT OF VARIATION 15.6 (11.5-15.0); RED BLOOD CELL COUNT(AUTO) 4.27 MIL/uL (4.5-6.0)
[2017-10-27 07:16] LABS: BILIRUBIN,DIRECT 0.3 mg/dL (0.0-0.2); BILIRUBIN,TOTAL 0.9 mg/dL (0.2-1.0); CALCIUM, SERUM 8.6 mg/dL (8.5-10.1); CREATININE 1.2 mg/dL (0.6-1.3); POTASSIUM 3.5 mmol/L (3.5-5.1); TOTAL PROTEIN, SERUM 7.1 g/dL (6.4-8.2)
[2017-10-27 08:00] VITALS: BP 136/67
--- NOTE | 2017-10-27 08:00 | NUR ---
MS RN AM NOTES RECEIVED PT IN BED, A/O X4, SLEEPING COMFORTABLY BUT AROUSABLE-REFUSED TO BE BOTHERED.AM MEDS PO GIVEN.NOT IN ANY FORM OF PAIN OR DISTRESS. CONTACT ISOLATION PRECAUTIONS OBSERVED.CALL LIGHT IN REACH,NEEDS ANTICIPATED. WILL CONT TO MONITOR
[2017-10-27] MEDS: ASPIRIN 81 MG TAB.CHEW PO SCH (09:00)
[2017-10-27] MEDS: LEVOTHYROXINE SODIUM 175 MCG TABLET PO SCH (09:58)
[2017-10-27] MEDS: PANTOPRAZOLE 40 MG VIAL IV SCH (09:58)
[2017-10-27] MEDS: DOCUSATE SODIUM 100 MG CAPSULE PO SCH (09:59)
[2017-10-27] MEDS: CLOPIDOGREL BISULFATE 75 MG TABLET PO SCH (09:59)
[2017-10-27] MEDS: AMLODIPINE BESYLATE 5 MG TABLET PO SCH (09:59)
[2017-10-27] MEDS: CARVEDILOL 6.25 MG TABLET PO SCH (10:00)
[2017-10-27] MEDS: DRONABINOL (2.5 MG) 2.5 MG CAPSULE PO SCH (10:00)
[2017-10-27] MEDS: MUPIROCIN OINT 2% 22 GM TUBE SCH (10:01)
[2017-10-27] MEDS ORDERED: ASPI-1169 PO (15:09)
[2017-10-27 16:00] VITALS: BP 130/70
--- NOTE | 2017-10-27 17:18 | NUR ---
DISCHARGED HOME WITH STABLE V/S VIA PRIVATE CAR ACCOMPANIED BY HIS .DENIES PAIN OR DISTRESS.PRESCRIPTION GIVEN TO THE PT.
== END 2017-10-27 17:18 | disposition home or self-care (01) | DRG 444 ==
LOC: ER 15:17 → MEDSG2 19:52
PROVIDERS: ADMIT Nurse Practitioner Acute Care; ATTEND Nurse Practitioner Acute Care
DX: K80.70 Calculus of gallbladder and bile duct without cholecystitis without obstruction (principal); N17.0 Acute kidney failure with tubular necrosis; E66.01 Morbid (severe) obesity due to excess calories; Z68.41 Body mass index [BMI] 40.0-44.9, adult; E44.1 Mild protein-calorie malnutrition; K92.2 Gastrointestinal hemorrhage, unspecified; I25.10 Atherosclerotic heart disease of native coronary artery without angina pectoris; Z98.890 Other specified postprocedural states; Z95.5 Presence of coronary angioplasty implant and graft; Z90.5 Acquired absence of kidney; Z90.49 Acquired absence of other specified parts of digestive tract; Z87.891 Personal history of nicotine dependence; Z86.73 Personal history of transient ischemic attack (TIA), and cerebral infarction without residual deficits; Z85.528 Personal history of other malignant neoplasm of kidney; Z82.49 Family history of ischemic heart disease and other diseases of the circulatory system; I12.9 Hypertensive chronic kidney disease with stage 1 through stage 4 chronic kidney disease, or unspecified chronic kidney disease; N18.9 Chronic kidney disease, unspecified; Z79.82 Long term (current) use of aspirin; Z79.899 Other long term (current) drug therapy; D64.9 Anemia, unspecified; E78.5 Hyperlipidemia, unspecified; K76.0 Fatty (change of) liver, not elsewhere classified; I70.0 Atherosclerosis of aorta; I25.2 Old myocardial infarction; E86.0 Dehydration
CPT/HCPCS: 36415; 71045-TC; 76700-TC; 76705-TC; 80048-TC; 80061-TC; 80076-TC; 83540-TC; 83690-TC; 83735-TC; 84100-TC; 84443-TC; 84484-TC; 85025-TC; 85730-TC; 87081-TC; A4606; C9113; J2270; J7030; Q0167; Z7610

== ENCOUNTER 2019-06-15 00:22 | Emergency (ER) | payer MEDICARE, OTHER ==
[~2019-06-15] VITALS: Ht 170.2 cm; Wt 131.5 kg
[~2019-06-15 00:22] MED LIST changes: +AMLO5TAB9 PO; +ASPI-1169 PO; -ASPI-495 PO; +ATOR40TA PO; +CARV6.252 PO; +CLOP75TA15 PO; +DEXL60CA3 PO; +DRON2.5C3 PO; +LINA290C PO; +LORA0.5T PO; +OXYC10TA49 PO; +PANT40TA4 PO; +TRAM50TA2 PO
--- NOTE | 2019-06-15 00:35 | NUR ---
PT BIBSELF. AAOX4. ABLE TO AMBULATE. PT C/O FEELING NAUSEOUS AND FALLING. ABRASION NOTED ON RIGHT KNEE. BRUISE NOTED ON LEFT ARM. PT C/O 7/10 SHARP PAIN ON RIGHT KNEE AND BACK. PT PLACED ON CONTINIOUS CARDIAC MONITORING AND PULSE OX. BREATHING EVEN AND UNLABORED. NO ACUTE DISTRESS NOTED AT THIS TIME. AWAITING MD FOR EVAL.
[2019-06-15] MEDS ORDERED: TDAP [DIPH/PERTUSSIS/TET] 0.5 ML VIAL IM ONE ×3 (01:21→01:51)
[2019-06-15] MEDS ORDERED: HYDROMORPHONE 1 MG/1 ML DISP.SYRIN ONE (01:21)
[2019-06-15] MEDS ORDERED: HYDROMORPHONE INJ 0.5 MG/0.5 ML SYRINGE IM ONE (01:30)
--- NOTE | 2019-06-15 01:33 | NUR ---
RADIOLOGY AT BEDSIDE FOR XRAY.
[2019-06-15 01:50] LABS: APPEARANCE,URINE Clear (CLEAR); BILIRUBIN,URINE Negative (NEGATIVE); BLOOD, URINE Negative Ery/uL (NEGATIVE); COLOR,URINE Yellow (YELLOW); KETONES,URINE Negative (NEGATIVE); LEUKOCYTE ESTERASE ,URINE Trace (NEGATIVE); NITRITE, URINE Negative (NEGATIVE); PH,URINE 5.5 (5.0-8.0); PROTEIN,URINE Negative (NEGATIVE); UGLUCOSE Negative (NEGATIVE); UROBILINOGEN,URINE 0.2 EU/dL (0.2)
[2019-06-15 02:00] LABS: BACTERIA,URINE None seen /HPF (None Seen); RBC,URINE 0-2 /HPF (0-2); SQUAMOUS EPITHELIAL CELL,UR Rare /HPF (None Seen)
--- NOTE | 2019-06-15 03:40 | NUR ---
Patient discharged to home in stable condition. Written and verbal after care instructions given. Patient verbalizes understanding of instruction. PT ambulatory with a steady gait.
[2019-06-15 03:41] VITALS: BP 138/72
== END 2019-06-15 03:42 | disposition home or self-care (01) ==
LOC: ER 00:24
DX: S80.01XA Contusion of right knee, initial encounter (principal); I10 Essential (primary) hypertension; E03.9 Hypothyroidism, unspecified; Z86.73 Personal history of transient ischemic attack (TIA), and cerebral infarction without residual deficits; Z85.53 Personal history of malignant neoplasm of renal pelvis; Z95.818 Presence of other cardiac implants and grafts; Z98.890 Other specified postprocedural states; Z79.899 Other long term (current) drug therapy; W18.39XA Other fall on same level, initial encounter; Y93.89 Activity, other specified; Y92.89 Other specified places as the place of occurrence of the external cause; Y99.8 Other external cause status
CPT/HCPCS: 73564; 81001; 90471; 90715; 96372; 99284; J1170; 81000-TC

== ENCOUNTER 2023-06-15 03:49 | Emergency (ER) | payer MEDICARE, OTHER ==
[~2023-06-15] VITALS: Ht 177.8 cm; Wt 136.1 kg
[~2023-06-15 03:49] MED LIST changes: +AMLO-212 PO; -AMLO5TAB9 PO; -PANT40TA4 PO; +PANT40TA49 PO
[2023-06-15] MEDS ORDERED: ASPIRIN 325 MG TABLET ONE ×2 (04:23→04:32)
[2023-06-15] MEDS ORDERED: NITROGLYCERIN 0.4 MG/TAB BOTTLE ONE (04:23)
[2023-06-15] MEDS ORDERED: ASPIRIN 325 MG TABLET PO ONE (04:30)
[2023-06-15] MEDS ORDERED: NITROGLYCERIN 0.4 MG/TAB BOTTLE SL ONE (04:30)
[2023-06-15 04:43] LABS: BASOPHILS % (AUTO) 0.4 % (0.0-2.0); EOSINOPHILS # (AUTO) 0.1 K/uL (0.0-0.7); EOSINOPHILS % (AUTO) 1.7 % (0.0-6.0); HEMATOCRIT 41 % (39-51); HEMOGLOBIN 13.5 g/dL (13.5-17.5); LYMPHOCYTES # (AUTO) 2.4 K/uL (0.8-4.8); LYMPHOCYTES % (AUTO) 27.5 % (20.0-44.0); MEAN CORPUSCULAR HEMOGLOBIN 27 PG (26.0-33.0); MEAN CORPUSCULAR HGB CONC 33 g/dl (31.0-36.0); MEAN CORPUSCULAR VOLUME 81 fL (80-96); MONOCYTES # (AUTO) 0.5 K/uL (0.1-1.30); MONOCYTES % (AUTO) 5.5 % (2.0-12.0); NEUTROPHILS # (AUTO) 5.7 K/uL (1.8-8.9); NEUTROPHILS % (AUTO) 64.9 % (43.0-81.0); PLATELET COUNT (AUTO) 194 K/uL (150-450); RED BLOOD CELL COUNT(AUTO) 5.09 MIL/uL (4.5-6.0); RED CELL DISTRIBUTION WIDTH 15.9 % (11.5-15.0); WHITE BLOOD COUNT (AUTO) 8.7 K/uL (4.3-11.0)
[2023-06-15 04:46] LABS: CARBON DIOXIDE 31 mmol/L (21-32); CHLORIDE 100 mmol/L (98-107); CREATININE 1.4 mg/dL (0.6-1.3); GLUCOSE 143 mg/dL (74-106); POTASSIUM 3.8 mmol/L (3.5-5.1); SODIUM SERUM 137 mmol/L (136-145); UREA NITROGEN, BLOOD 18 mg/dL (7-18)
[2023-06-15] MEDS ORDERED: ACETAMINOPHEN ES 500 MG TABLET ONE (05:11)
[2023-06-15] MEDS ORDERED: hydrALAZINE HCL IV 20 MG VIAL ONE (05:27)
[2023-06-15] MEDS ORDERED: ACETAMINOPHEN ES 500 MG TABLET PO ONE (05:30)
[2023-06-15] MEDS ORDERED: hydrALAZINE HCL IV 20 MG VIAL IV ONE (05:30)
[2023-06-15] MEDS ORDERED: ONDANSETRON HCL/PF 4 MG/2 ML VIAL ONE (06:03)
[2023-06-15] MEDS ORDERED: ONDANSETRON HCL/PF 4 MG/2 ML VIAL IV ONE (06:30)
[2023-06-15 09:43] VITALS: BP 182/69; TEMP 98.8; O2SAT 100
== END 2023-06-15 09:43 | disposition home or self-care (01) ==
LOC: ER 04:00
DX: R07.9 Chest pain, unspecified (principal); I16.0 Hypertensive urgency; E03.9 Hypothyroidism, unspecified; Z85.850 Personal history of malignant neoplasm of thyroid; Z79.899 Other long term (current) drug therapy
CPT/HCPCS: 99285; 96374; 71045; 96375; 93005 ×2; 85025; 80048; 36415; 84484 ×2; J0360; J2405

== ENCOUNTER 2024-05-31 14:03 | Inpatient (IN) | payer MEDICARE, OTHER ==
[~2024-05-31] VITALS: Ht 167.6 cm; Wt 124.7 kg
[2024-05-31] MEDS ORDERED: MORPHINE SULFATE INJ 4 MG/ML DISP.SYRIN ONE ×2 (14:28→16:05)
[2024-05-31] MEDS ORDERED: ONDANSETRON HCL/PF 4 MG/2 ML VIAL ONE (14:28)
[2024-05-31] MEDS ORDERED: MAG HYDROX/AL HYDROX/SIMETH 30 ML UDC ONE (14:28)
[2024-05-31] MEDS ORDERED: FAMOTIDINE/PF INJ 20 MG/2 ML VIAL IV ONE (14:29)
[2024-05-31] MEDS: MORPHINE SULFATE INJ 2 MG/ML DISP.SYRIN IV ONE ×2 (14:51→16:06)
[2024-05-31] MEDS: ONDANSETRON HCL/PF 4 MG/2 ML VIAL IVP ONE (14:51)
[2024-05-31] MEDS: FAMOTIDINE/PF INJ 20 MG/2 ML VIAL IV ONE (14:51)
[2024-05-31] MEDS: MAG HYDROX/AL HYDROX/SIMETH 30 ML UDC PO ONE (14:51)
[2024-05-31 14:53] LABS: BASOPHILS % (AUTO) 0.3 % (0.0-2.0); EOSINOPHILS % (AUTO) 0.1 % (0.0-6.0); HEMATOCRIT 39 % (39-51); LYMPHOCYTES # (AUTO) 1.2 K/uL (0.8-4.8); LYMPHOCYTES % (AUTO) 10.7 % (20.0-44.0); MEAN CORPUSCULAR HEMOGLOBIN 28 PG (26.0-33.0); MEAN CORPUSCULAR HGB CONC 34 g/dl (31.0-36.0); MEAN CORPUSCULAR VOLUME 84 fL (80-96); MONOCYTES # (AUTO) 0.5 K/uL (0.1-1.30); MONOCYTES % (AUTO) 4.1 % (2.0-12.0); NEUTROPHILS # (AUTO) 9.4 K/uL (1.8-8.9); NEUTROPHILS % (AUTO) 84.8 % (43.0-81.0); PLATELET COUNT (AUTO) 178 K/uL (150-450); RED BLOOD CELL COUNT(AUTO) 4.63 MIL/uL (4.5-6.0); RED CELL DISTRIBUTION WIDTH 15.3 % (11.5-15.0); WHITE BLOOD COUNT (AUTO) 11.1 K/uL (4.3-11.0)
[2024-05-31 15:08] LABS: CALCIUM, SERUM 8.8 mg/dL (8.5-10.1); CARBON DIOXIDE 30 mmol/L (21-32); CHLORIDE 100 mmol/L (98-107); CREATININE 1.4 mg/dL (0.6-1.3); GLUCOSE 196 mg/dL (74-106); POTASSIUM 3.7 mmol/L (3.5-5.1); SODIUM SERUM 136 mmol/L (136-145); UREA NITROGEN, BLOOD 15 mg/dL (7-18)
[2024-05-31 15:18] LABS: ALANINE AMINOTRANSFERASE 17 U/L (12-78); ALBUMIN 3.6 g/dL (3.4-5.0); ALKALINE PHOSPHATASE 49 U/L (46-116); ASPARTATE AMINOTRANSFERASE 14 U/L (15-37); BILIRUBIN,DIRECT 0.1 mg/dL (0.0-0.2); BILIRUBIN,TOTAL 0.5 mg/dL (0.2-1.0); LIPASE 22 U/L (16-77); TOTAL PROTEIN, SERUM 7.2 g/dL (6.4-8.2)
[2024-05-31 16:11] LABS: APPEARANCE,URINE Clear (CLEAR); BILIRUBIN,URINE Negative (NEGATIVE); BLOOD, URINE Negative Ery/uL (NEGATIVE); COLOR,URINE LIGHT YELLOW (YELLOW); KETONES,URINE Negative (NEGATIVE); LEUKOCYTE ESTERASE ,URINE Negative (NEGATIVE); NITRITE, URINE Negative (NEGATIVE); PH,URINE 5.5 (5.0-8.0); PROTEIN,URINE Negative (NEGATIVE); UGLUCOSE Negative (NEGATIVE); UROBILINOGEN,URINE 0.2 EU/dL (0.2)
[2024-05-31] MEDS: IV NS 0.9% 1,000 ML BAG IV ONE (16:32)
[2024-05-31] MEDS ORDERED: DICL1PAT7 TD (17:12)
[2024-05-31] MEDS ORDERED: ALBU8.5H8 IH (17:12)
[2024-05-31] MEDS ORDERED: LOSA50TA39 PO (17:12)
[2024-05-31] MEDS ORDERED: NEBI10TA2 PO (17:12)
[2024-05-31] MEDS ORDERED: MONT10TA22 PO (17:12)
[2024-05-31] MEDS ORDERED: EVOL140P3 SQ (17:12)
[2024-05-31] MEDS ORDERED: CYCL30DR EACHEYE (17:12)
[2024-05-31] MEDS ORDERED: MOUNJARO SQ (17:12)
[2024-05-31] MEDS ORDERED: ASPI-1169 PO (17:12)
[2024-05-31] MEDS ORDERED: OXYB10TA30 PO (17:12)
[2024-05-31] MEDS ORDERED: ZOLP5TAB2 PO (17:12)
[2024-05-31] MEDS ORDERED: NALO25TA PO (17:12)
[2024-05-31] MEDS ORDERED: NITR12SP NS (17:12)
[2024-05-31] MEDS ORDERED: CLON0.1T PO (17:12)
[2024-05-31] MEDS ORDERED: CYAN10006 IM (17:12)
[2024-05-31] MEDS ORDERED: DUTA0.5C37 PO (17:12)
[2024-05-31] MEDS ORDERED: ESZO3TAB27 PO (17:12)
[2024-05-31] MEDS ORDERED: CELE200C PO (17:12)
[2024-05-31] MEDS: PIPERACILLIN /TAZOBACTAM 3.375 G in IV D5W 50 ML IV ONE (17:20)
[2024-05-31] MEDS ORDERED: Z GUARD REMEDY 4 OZ OINT TP PRN (18:00)
[2024-05-31] MEDS ORDERED: MAGNESIUM HYDROXIDE 30 ML UDC PO PRN (18:00)
[2024-05-31 18:15] VITALS: BP 173/82; TEMP 98.4; O2SAT 94
[2024-05-31] MEDS: hydrALAZINE HCL IV 20 MG VIAL IV PRN (18:23)
[2024-05-31] MEDS: HYDROMORPHONE 1 MG/1 ML DISP.SYRIN IV PRN (18:24)
[2024-05-31] MEDS: PIPERACILLIN /TAZOBACTAM 3.375 G in IV D5W 50 ML IV SCH (18:34)
[2024-05-31 19:38] LABS: INR 1.02 (0.91-1.10); PROTHROMBIN TIME 10.8 SECS (9.2-11.1)
[2024-05-31 20:00] VITALS: BP 135/54; TEMP 98.2; O2SAT 95
[2024-05-31 20:13] VITALS: BP 135/54; TEMP 98.2; O2SAT 94
[2024-05-31] MEDS: IV D5/0.45 NACL 1,000 ML IV PRN (23:32)
[2024-06-01 06:17] LABS: HEMATOCRIT 37 % (39-51); HEMOGLOBIN 12.4 g/dL (13.5-17.5); LYMPHOCYTES # (AUTO) 1.1 K/uL (0.8-4.8); LYMPHOCYTES % (AUTO) 7.1 % (20.0-44.0); MEAN CORPUSCULAR HEMOGLOBIN 28 PG (26.0-33.0); MEAN CORPUSCULAR HGB CONC 34 g/dl (31.0-36.0); MEAN CORPUSCULAR VOLUME 81 fL (80-96); MONOCYTES # (AUTO) 0.9 K/uL (0.1-1.30); MONOCYTES % (AUTO) 5.8 % (2.0-12.0); NEUTROPHILS # (AUTO) 13.1 K/uL (1.8-8.9); NEUTROPHILS % (AUTO) 87.1 % (43.0-81.0); PLATELET COUNT (AUTO) 146 K/uL (150-450); RED BLOOD CELL COUNT(AUTO) 4.51 MIL/uL (4.5-6.0)
[2024-06-01 06:34] LABS: CALCIUM, SERUM 8.8 mg/dL (8.5-10.1); CARBON DIOXIDE 24 mmol/L (21-32); CHLORIDE 97 mmol/L (98-107); CREATININE 1.2 mg/dL (0.6-1.3); GLUCOSE 198 mg/dL (74-106); MAGNESIUM 1.6 mg/dL (1.8-2.4); PHOSPHORUS 1.8 mg/dL (2.5-4.9); SODIUM SERUM 136 mmol/L (136-145); UREA NITROGEN, BLOOD 12 mg/dL (7-18)
[2024-06-01 07:05] LABS: CHOLESTEROL 121 mg/dL (<200); HDL CHOLESTEROL 51 mg/dL (40-60); LDL 66 mg/dL (0-99); TRIGLYCERIDES 37 mg/dL (30-150)
[2024-06-01 08:00] VITALS: BP 155/74; TEMP 98.1; O2SAT 94
[2024-06-01] MEDS ORDERED: POTASSIUM CL. PREMIX PERIPHER. 50 ML IV SCH (09:30)
[2024-06-01] MEDS ORDERED: POTASSIUM CHLORIDE 10 MEQ/50 ML PREMIXED IVPB FOR PERIPHERAL LINE IV SCH (10:00)
[2024-06-01] MEDS: Magnesium 1GM/D5W 100ML PREMIX 100 ML IV SCH (10:40)
[2024-06-01] MEDS: ACETAMINOPHEN 325 MG TABLET PO PRN (11:28)
[2024-06-01] MEDS: POTASSIUM CL. PREMIX PERIPHER. 50 ML IV SCH (12:09)
[2024-06-01] MEDS: HYDROMORPHONE 1 MG/1 ML DISP.SYRIN IV ONE (13:15)
[2024-06-01 16:00] VITALS: BP 142/54; TEMP 98.6; O2SAT 96
[2024-06-01] MEDS: Sodium Phosphate 15 MMOL in IV NS 0.9% 245 ML IV SCH (16:46)
[2024-06-01] MEDS: HYDROMORPHONE 1 MG/1 ML DISP.SYRIN IV PRN ×2 (17:22→20:39)
[2024-06-01 20:00] VITALS: BP 153/82; TEMP 98.6; O2SAT 93
[2024-06-02] VITALS (7 sets, daily range): BP systolic 125–162; BP diastolic 54–86; TEMP 98–98.5; O2SAT 93–97
[2024-06-02 02:40] LABS: ABG OXYGEN SATURATION 95.1 % (94.0-98.0); ABG PCO2 32.7 mmHg (35.0-48.0); ABG PH 7.417 (7.350-7.450); ABG PO2 75.8 mmHg (83.0-108.0); ABG TOTAL HEMOGLOBIN 14.2 G/dL (13.5-17.5); COHb 0.8 % (0.5-1.5); MetHb 0.3 % (0.0-1.5); O2Hb 94.1 % (94.0-97.0); SITE, ABG LEFT RADIAL
[2024-06-02] MEDS: FUROSEMIDE 40 MG/4 ML VIAL IV ONE (05:04)
[2024-06-02 05:59] LABS: BASOPHILS % (AUTO) 0.1 % (0.0-2.0); HEMATOCRIT 38 % (39-51); HEMOGLOBIN 12.8 g/dL (13.5-17.5); LYMPHOCYTES # (AUTO) 0.9 K/uL (0.8-4.8); LYMPHOCYTES % (AUTO) 5.6 % (20.0-44.0); MEAN CORPUSCULAR HEMOGLOBIN 28 PG (26.0-33.0); MEAN CORPUSCULAR HGB CONC 34 g/dl (31.0-36.0); MEAN CORPUSCULAR VOLUME 81 fL (80-96); MONOCYTES # (AUTO) 0.8 K/uL (0.1-1.30); NEUTROPHILS # (AUTO) 14.7 K/uL (1.8-8.9); NEUTROPHILS % (AUTO) 89.3 % (43.0-81.0); PLATELET COUNT (AUTO) 132 K/uL (150-450); RED BLOOD CELL COUNT(AUTO) 4.62 MIL/uL (4.5-6.0); RED CELL DISTRIBUTION WIDTH 15.4 % (11.5-15.0); WHITE BLOOD COUNT (AUTO) 16.5 K/uL (4.3-11.0)
[2024-06-02 06:13] LABS: ALANINE AMINOTRANSFERASE 20 U/L (12-78); ALBUMIN 2.6 g/dL (3.4-5.0); ALKALINE PHOSPHATASE 55 U/L (46-116); ASPARTATE AMINOTRANSFERASE 19 U/L (15-37); BILIRUBIN,DIRECT 0.5 mg/dL (0.0-0.2); BILIRUBIN,TOTAL 1.1 mg/dL (0.2-1.0); CALCIUM, SERUM 8.2 mg/dL (8.5-10.1); CARBON DIOXIDE 26 mmol/L (21-32); CHLORIDE 99 mmol/L (98-107); CREATININE 1.3 mg/dL (0.6-1.3); GLUCOSE 272 mg/dL (74-106); MAGNESIUM 2.2 mg/dL (1.8-2.4); PHOSPHORUS 2.1 mg/dL (2.5-4.9); POTASSIUM 3.6 mmol/L (3.5-5.1); SODIUM SERUM 137 mmol/L (136-145); TOTAL PROTEIN, SERUM 6.7 g/dL (6.4-8.2); UREA NITROGEN, BLOOD 16 mg/dL (7-18)
[2024-06-02] MEDS: ONDANSETRON HCL/PF 4 MG/2 ML VIAL IVP PRN (09:45)
[2024-06-02] MEDS ORDERED: IV D5/0.45 NACL 1,000 ML IV PRN (09:57)
[2024-06-02] MEDS: IPRATROPIUM NEB FS 0.5 MG/2.5 ML AMPUL.NEB NEB PRN (10:51)
[2024-06-02] MEDS: ALBUTEROL FS 2.5 MG/3 ML VIAL.NEB NEB PRN (10:51)
[2024-06-02 11:16] LABS: ABG BASE EXCESS 1.6 mmol/L (-2.0-3.0); ABG OXYGEN SATURATION 96.8 % (94.0-98.0); ABG PCO2 33.4 mmHg (35.0-48.0); ABG PH 7.483 (7.350-7.450); ABG TOTAL HEMOGLOBIN 14.6 G/dL (13.5-17.5); COHb 0.9 % (0.5-1.5); MetHb 0.3 % (0.0-1.5); O2Hb 95.6 % (94.0-97.0); SITE, ABG RIGHT RADIAL
[2024-06-02] MEDS: DUTASTERIDE (0.5 MG) 0.5 MG CAPSULE PO SCH (12:37)
[2024-06-02] MEDS: K PHOS NEUTRAL 250 MG TABLET PO ONE (17:16)
[2024-06-02] MEDS: TAMSULOSIN 0.4 MG CAP.SR.24H PO SCH (21:33)
[2024-06-03] VITALS (18 sets, daily range): BP systolic 115–184; BP diastolic 51–84; TEMP 98.1–99.5; O2SAT 94–98
[2024-06-03 06:35] LABS: BASOPHILS % (AUTO) 0.1 % (0.0-2.0); EOSINOPHILS % (AUTO) 0.1 % (0.0-6.0); HEMATOCRIT 39 % (39-51); INR 1.12 (0.91-1.10); LYMPHOCYTES # (AUTO) 1.2 K/uL (0.8-4.8); LYMPHOCYTES % (AUTO) 10.6 % (20.0-44.0); MEAN CORPUSCULAR HEMOGLOBIN 28 PG (26.0-33.0); MEAN CORPUSCULAR HGB CONC 33 g/dl (31.0-36.0); MEAN CORPUSCULAR VOLUME 82 fL (80-96); MONOCYTES # (AUTO) 0.3 K/uL (0.1-1.30); MONOCYTES % (AUTO) 3.1 % (2.0-12.0); NEUTROPHILS # (AUTO) 9.6 K/uL (1.8-8.9); NEUTROPHILS % (AUTO) 86.1 % (43.0-81.0); PARTIAL THROMBOPLASTIN TIME 34.7 SEC (24.3-34.3); PLATELET COUNT (AUTO) 138 K/uL (150-450); PROTHROMBIN TIME 11.8 SECS (9.2-11.1); RED BLOOD CELL COUNT(AUTO) 4.72 MIL/uL (4.5-6.0); RED CELL DISTRIBUTION WIDTH 15.9 % (11.5-15.0); WHITE BLOOD COUNT (AUTO) 11.1 K/uL (4.3-11.0)
[2024-06-03] MEDS ORDERED: BUPIVACAINE 0.5 % PF 150 MG/30 ML VIAL ONE (08:12)
[2024-06-03] MEDS ORDERED: IOHEXOL 0 ML IV ONE (08:12)
[2024-06-03] MEDS ORDERED: LIDOCAINE 1%-EPI 1:100,000 20 ML VIAL ONE (08:12)
[2024-06-03 09:10] LABS: ALANINE AMINOTRANSFERASE 19 U/L (12-78); ALBUMIN 2.6 g/dL (3.4-5.0); ALKALINE PHOSPHATASE 57 U/L (46-116); ASPARTATE AMINOTRANSFERASE 20 U/L (15-37); BILIRUBIN,TOTAL 0.8 mg/dL (0.2-1.0); CALCIUM, SERUM 8.4 mg/dL (8.5-10.1); CARBON DIOXIDE 29 mmol/L (21-32); CHLORIDE 100 mmol/L (98-107); CREATININE 1.3 mg/dL (0.6-1.3); GLUCOSE 137 mg/dL (74-106); MAGNESIUM 2.5 mg/dL (1.8-2.4); POTASSIUM 3.2 mmol/L (3.5-5.1); SODIUM SERUM 136 mmol/L (136-145); TOTAL PROTEIN, SERUM 7.1 g/dL (6.4-8.2); UREA NITROGEN, BLOOD 20 mg/dL (7-18)
[2024-06-03] MEDS ORDERED: METRONIDAZOLE 500MG/ NS 100ML 100 ML IV ONE (11:06)
[2024-06-03] MEDS ORDERED: FENTANYL PF 100MCG/2ML AMPUL ONE ×2 (12:16→12:31)
[2024-06-03] MEDS ORDERED: MEPERIDINE25 MG SYR 25 MG/ML VIAL ONE (12:25)
[2024-06-03] MEDS ORDERED: ONDANSETRON HCL/PF 4 MG/2 ML VIAL ONE (12:49)
[2024-06-03] MEDS: POTASSIUM CL. PREMIX PERIPHER. 50 ML IV SCH (13:39)
[2024-06-03] MEDS: KETOROLAC TROMETHAMINE INJ 30 MG/ML VIAL IV ONE (20:20)
[2024-06-03] MEDS: ZOLPIDEM TARTRATE 5 MG TABLET PO PRN (21:50)
[2024-06-04] VITALS (19 sets, daily range): BP systolic 128–190; BP diastolic 61–130; TEMP 97.6–99.9; O2SAT 94–98
[2024-06-04] MEDS: ASPIRIN 81 MG TAB.CHEW PO ONE (02:15)
[2024-06-04] MEDS: NITROGLYCERIN 0.4 MG/TAB BOTTLE SL PRN (02:25)
[2024-06-04] MEDS: IBUPROFEN 400 MG TABLET PO PRN (02:59)
[2024-06-04 03:03] LABS: BASOPHILS % (AUTO) 0.1 % (0.0-2.0); EOSINOPHILS % (AUTO) 0.1 % (0.0-6.0); HEMATOCRIT 36 % (39-51); HEMOGLOBIN 12.2 g/dL (13.5-17.5); LYMPHOCYTES # (AUTO) 1.1 K/uL (0.8-4.8); LYMPHOCYTES % (AUTO) 9.8 % (20.0-44.0); MEAN CORPUSCULAR HEMOGLOBIN 28 PG (26.0-33.0); MEAN CORPUSCULAR HGB CONC 34 g/dl (31.0-36.0); MEAN CORPUSCULAR VOLUME 82 fL (80-96); MONOCYTES # (AUTO) 0.7 K/uL (0.1-1.30); NEUTROPHILS # (AUTO) 8.9 K/uL (1.8-8.9); PLATELET COUNT (AUTO) 151 K/uL (150-450); RED BLOOD CELL COUNT(AUTO) 4.43 MIL/uL (4.5-6.0); RED CELL DISTRIBUTION WIDTH 15.6 % (11.5-15.0); WHITE BLOOD COUNT (AUTO) 10.7 K/uL (4.3-11.0)
[2024-06-04 03:23] LABS: ALANINE AMINOTRANSFERASE 36 U/L (12-78); ALBUMIN 2.2 g/dL (3.4-5.0); ALKALINE PHOSPHATASE 50 U/L (46-116); ASPARTATE AMINOTRANSFERASE 44 U/L (15-37); BILIRUBIN,DIRECT 0.2 mg/dL (0.0-0.2); BILIRUBIN,TOTAL 0.6 mg/dL (0.2-1.0); CALCIUM, SERUM 8.1 mg/dL (8.5-10.1); CARBON DIOXIDE 29 mmol/L (21-32); CHLORIDE 100 mmol/L (98-107); CREATININE 1.2 mg/dL (0.6-1.3); GLUCOSE 156 mg/dL (74-106); MAGNESIUM 2.6 mg/dL (1.8-2.4); PHOSPHORUS 2.7 mg/dL (2.5-4.9); POTASSIUM 3.3 mmol/L (3.5-5.1); SODIUM SERUM 138 mmol/L (136-145); TOTAL PROTEIN, SERUM 6.4 g/dL (6.4-8.2); UREA NITROGEN, BLOOD 26 mg/dL (7-18)
[2024-06-04] MEDS: MONTELUKAST SODIUM (10MG) 10 MG TABLET PO SCH (08:23)
[2024-06-04] MEDS: AMLODIPINE BESYLATE 5 MG TABLET PO SCH (08:24)
[2024-06-04] MEDS: LEVOTHYROXINE SODIUM 175 MCG TABLET PO SCH (08:54)
[2024-06-04] MEDS ORDERED: Medication Not On Formulary EA (Cyclosporine (Restasis) 1 DROP) EACHEYE SCH (09:00)
[2024-06-04] MEDS: POTASSIUM CHLORIDE 20 MEQ POWDER PACKET NG SCH (10:34)
[2024-06-04] MEDS: METOPROLOL TARTRATE 25 MG TABLET PO SCH (15:51)
[2024-06-05] VITALS (7 sets, daily range): BP systolic 135–194; BP diastolic 67–86; TEMP 97.7–98.6; O2SAT 92–96
[2024-06-05 07:44] LABS: CALCIUM, SERUM 8.6 mg/dL (8.5-10.1); CARBON DIOXIDE 27 mmol/L (21-32); CHLORIDE 98 mmol/L (98-107); GLUCOSE 138 mg/dL (74-106); POTASSIUM 3.1 mmol/L (3.5-5.1); SODIUM SERUM 138 mmol/L (136-145); UREA NITROGEN, BLOOD 24 mg/dL (7-18)
[2024-06-05 07:58] LABS: BASOPHILS % (AUTO) 0.5 % (0.0-2.0); EOSINOPHILS # (AUTO) 0.1 K/uL (0.0-0.7); EOSINOPHILS % (AUTO) 0.9 % (0.0-6.0); HEMATOCRIT 38 % (39-51); HEMOGLOBIN 12.7 g/dL (13.5-17.5); LYMPHOCYTES # (AUTO) 1.4 K/uL (0.8-4.8); LYMPHOCYTES % (AUTO) 16.3 % (20.0-44.0); MEAN CORPUSCULAR HEMOGLOBIN 28 PG (26.0-33.0); MEAN CORPUSCULAR HGB CONC 34 g/dl (31.0-36.0); MEAN CORPUSCULAR VOLUME 82 fL (80-96); MONOCYTES # (AUTO) 0.7 K/uL (0.1-1.30); MONOCYTES % (AUTO) 8.2 % (2.0-12.0); NEUTROPHILS # (AUTO) 6.5 K/uL (1.8-8.9); NEUTROPHILS % (AUTO) 74.1 % (43.0-81.0); PLATELET COUNT (AUTO) 182 K/uL (150-450); RED BLOOD CELL COUNT(AUTO) 4.59 MIL/uL (4.5-6.0); RED CELL DISTRIBUTION WIDTH 15.9 % (11.5-15.0); WHITE BLOOD COUNT (AUTO) 8.7 K/uL (4.3-11.0)
[2024-06-05] MEDS: LOSARTAN POTASSIUM 25 MG TABLET PO SCH (08:29)
[2024-06-05] MEDS ORDERED: LOSARTAN POTASSIUM 25 MG TABLET PO SCH (09:00)
[2024-06-05] MEDS: POTASSIUM CHLORIDE 20 MEQ TAB.PRT.SR PO SCH (10:48)
[2024-06-06] VITALS: BP 156/78; TEMP 97.5; O2SAT 96
[2024-06-06 04:37] VITALS: BP 167/76; TEMP 97.3; O2SAT 96
[2024-06-06 04:51] VITALS: BP 158/72; TEMP 97.3; O2SAT 96
[2024-06-06 07:50] LABS: CARBON DIOXIDE 32 mmol/L (21-32); CHLORIDE 99 mmol/L (98-107); GLUCOSE 159 mg/dL (74-106); POTASSIUM 3.1 mmol/L (3.5-5.1); SODIUM SERUM 137 mmol/L (136-145); UREA NITROGEN, BLOOD 22 mg/dL (7-18)
[2024-06-06 08:00] VITALS: BP 154/60; TEMP 98.5; O2SAT 95
[2024-06-06] MEDS: AMLODIPINE BESYLATE 10 MG TABLET PO SCH (08:20)
[2024-06-06] MEDS: LOSARTAN POTASSIUM 25 MG TABLET PO SCH (08:21)
[2024-06-06] MEDS: POTASSIUM CHLORIDE 20 MEQ TAB.PRT.SR PO SCH (10:44)
[2024-06-06 11:28] VITALS: BP 189/72
[2024-06-06 15:55] VITALS: O2SAT 95
== END 2024-06-06 18:25 | DRG 417 ==
LOC: ER 14:08 → MED 16:44 → TELE 06-02 02:05 → ICU 06-03 13:21 → TELE 06-04 18:40 → MED 06-06 18:17
PROVIDERS: ADMIT Nurse Practitioner Family; ATTEND Internal Medicine
PROC: 0FT44ZZ Resection of Gallbladder, Percutaneous Endoscopic Approach (ICD-10-PCS; principal; 2024-06-03)
PROC: 0FB04ZX Excision of Liver, Percutaneous Endoscopic Approach, Diagnostic (ICD-10-PCS; 2024-06-03)
DX: K80.00 Calculus of gallbladder with acute cholecystitis without obstruction (principal); J96.20 Acute and chronic respiratory failure, unspecified whether with hypoxia or hypercapnia; I50.22 Chronic systolic (congestive) heart failure; N17.9 Acute kidney failure, unspecified; I13.0 Hypertensive heart and chronic kidney disease with heart failure and stage 1 through stage 4 chronic kidney disease, or unspecified chronic kidney disease; Z68.41 Body mass index [BMI] 40.0-44.9, adult; I71.43 Infrarenal abdominal aortic aneurysm, without rupture; N18.9 Chronic kidney disease, unspecified; Z95.5 Presence of coronary angioplasty implant and graft; Z86.73 Personal history of transient ischemic attack (TIA), and cerebral infarction without residual deficits; Z90.5 Acquired absence of kidney; Z85.850 Personal history of malignant neoplasm of thyroid; Z85.528 Personal history of other malignant neoplasm of kidney; E89.0 Postprocedural hypothyroidism; Y83.9 Surgical procedure, unspecified as the cause of abnormal reaction of the patient, or of later complication, without mention of misadventure at the time of the procedure; Y92.9 Unspecified place or not applicable; Z79.02 Long term (current) use of antithrombotics/antiplatelets; Z79.890 Hormone replacement therapy; Z79.899 Other long term (current) drug therapy; I25.10 Atherosclerotic heart disease of native coronary artery without angina pectoris; N40.0 Benign prostatic hyperplasia without lower urinary tract symptoms; E78.5 Hyperlipidemia, unspecified; C73 Malignant neoplasm of thyroid gland; E66.01 Morbid (severe) obesity due to excess calories; G47.33 Obstructive sleep apnea (adult) (pediatric); Z85.118 Personal history of other malignant neoplasm of bronchus and lung; Z90.2 Acquired absence of lung [part of]; Z87.891 Personal history of nicotine dependence; Z79.82 Long term (current) use of aspirin; K42.9 Umbilical hernia without obstruction or gangrene
CPT/HCPCS: 36415; 36600; 71045-TC; 76700-TC; 78226; 80048-TC; 80053-TC; 80061-TC; 80076-TC; 82803-TC; 82962-TC; 83690-TC; 83735-TC; 83880; 84100-TC; 84484-TC; 85025-TC; 85610-TC; 85730-TC; 86850-TC; 88304-TC; 88309-TC; 88313-TC; 93307-TC; 94761-TC; 94762-TC; 94799-TC; 97110-TC; 97116-TC; 97530-TC; A4223; A6209; A9537; A9563; G0378; J0360; J0690; J1171; J1885; J1940; J2175; J2270; J2310; J2405; J2543; J2704; J3010; J3475; J3480; J3490; J7040; J7050; J7060; Q9967